=== PATIENT | female | born 1985 | race American Indian/Alaskan Native ===

== ENCOUNTER 2017-10-02 07:14 | Emergency (ER) | payer SELFPAY ==
[2017-10-02 08:09] VITALS: BP 142/91
[2017-10-02] MEDS ORDERED: MOTRIN PO ONE (10:24)
--- NOTE | 2017-10-02 10:33 | Emergency Department Report ---
HPI - General Chief Complaint: Upper Respiratory Infection Time Seen by Provider: 10/02/17 10:20 - HPI HPI: 32-year-old -[place] female comes in for flu like symptoms. Patient reports that she has body aches fever or diarrhea nasal congestion that all started yesterday. Patient reports that she does have chest pain with cough. She reports that fever was 102 yesterday she took Tylenol Cold and sinus last night. She has a past medical history of hypertension. She currently takes no medication has no known drug allergies. ED Past Medical Hx - Past Medical History Previous Medical History?: Yes Hx Hypertension: Yes - Surgical History Past Surgical History?: No - Social History Smoking Status: Current Every Day Smoker Substance Use Type: None - Medications Home Medications: Home Medications Medication Instructions Recorded Confirmed Last Taken Type Ibuprofen [Motrin 800 MG tab] 800 mg PO TID #30 tablet 10/02/17 Unknown Rx Oseltamivir [Tamiflu] 75 mg PO BID #10 cap 10/02/17 Unknown Rx ED Review of Systems ROS: Stated complaint: FLU LIKE SYMPTOMS Other details as noted in HPI Constitutional: fever, weakness Eyes: denies: eye pain, eye discharge, vision change ENT: congestion Respiratory: cough Cardiovascular: chest pain (with cough) Endocrine: no symptoms reported Gastrointestinal: denies: abdominal pain, nausea, diarrhea Genitourinary: denies: urgency, dysuria, discharge Musculoskeletal: denies: back pain, joint swelling, arthralgia Skin: denies: rash, lesions Neurological: denies: headache, weakness, paresthesias Psychiatric: denies: anxiety, depression Hematological/Lymphatic: denies: easy bleeding, easy bruising Physical Exam - Physical Exam Vital Signs: Vital Signs 10/02/17 08:07 Temperature 98.2 F Pulse Rate 69 Respiratory 16 Rate Blood Pressure 142/91 O2 Sat by Pulse 100 Oximetry Physical Exam: GENERAL APPEARANCE: Well developed, well nourished, in no acute distress. SKIN: Inspection of the skin reveals no rashes, ulcerations or petechiae. HEENT: The sclerae were anicteric and conjunctivae were pink and moist. Extraocular movements were intact and pupils were equal, round, and reactive to light with normal accommodation. External inspection of the ears and nose showed no scars, lesions, or masses. Lips, teeth, and gums showed normal mucosa. The oral mucosa, hard and soft palate, tongue and posterior pharynx were normal. NECK: Supple and symmetric. There was no thyroid enlargement, and no tenderness , or masses were felt. CHEST: Normal AP diameter and normal contour without any kyphoscoliosis. LUNGS: Auscultation of the lungs revealed normal breath sounds without any other adventitious sounds or rubs. CARDIOVASCULAR: There was a regular rate and rhythm without any murmurs, gallops , rubs. The carotid pulses were normal and 2+ bilaterally without bruits. Peripheral pulses were 2+ and symmetric. Chest tenderness left upper. ABDOMEN: Soft and nontender with normal bowel sounds. The liver span was approximately 5-6 cm in the right midclavicular line by percussion. The liver edge was nontender. The spleen was not palpable. There were no inguinal or umbilical hernias noted. No ascites was noted. LYMPH NODES: Left clavicular lymphadenopathy was appreciated. No lymphadenopathy in the neck, axillae or groin. MUSCULOSKELETAL: Gait was normal. There was no tenderness or effusions noted. Muscle strength and tone were normal. EXTREMITIES: No cyanosis, clubbing or edema. NEUROLOGIC: Alert and oriented x 3. Normal affect. Gait was normal. Normal deep tendon reflexes with no pathological reflexes. Sensation to touch was normal. ED Course Vital Signs 10/02/17 08:07 Temperature 98.2 F Pulse Rate 69 Respiratory 16 Rate Blood Pressure 142/91 O2 Sat by Pulse 100 Oximetry ED Medical Decision Making - Medical Decision Making Patient has been evaluated by this provider fast track. Patient is afebrile and non-tachycardia we will not do a flu since she does not meet the criteria, chest x-ray not needed patient is moving air not currently coughing does not have a fever. We'll give patient ibuprofen and see how she feels. Critical care attestation.: If time is entered above; I have spent that time in minutes in the direct care of this critically ill patient, excluding procedure time. ED Disposition Clinical Impression: Influenza Disposition: DC-01 TO HOME OR SELFCARE Is pt being admited?: No Does the pt Need Aspirin: No Condition: Stable Instructions: Influenza (ED) Additional Instructions: He is take medication as prescribed. Please be sure to drink plenty of fluids rest . If symptoms get worse or does not improve follow with her primary care provider Prescriptions: Ibuprofen [Motrin 800 MG tab] 800 mg PO TID #30 tablet Oseltamivir [Tamiflu] 75 mg PO BID #10 cap Referrals: PRIMARY CARE, [Primary Care Provider] - 3-5 Days [facility] [Outside] - 3-5 Days Forms: Work/School Release Form(ED)
== END 2017-10-02 11:57 | disposition home or self-care (01) ==
LOC: ED 07:14
DX: J11.1 Influenza due to unidentified influenza virus with other respiratory manifestations (principal); F17.200 Nicotine dependence, unspecified, uncomplicated; I10 Essential (primary) hypertension
CPT/HCPCS: 99282

== ENCOUNTER 2019-08-22 13:18 | Emergency (ER) | payer SELFPAY ==
[2019-08-22] MEDS ORDERED: IBUPROFEN 600 MG TAB PO ONE ×2 (15:37→15:39)
--- NOTE | 2019-08-22 15:37 | Event Note ---
ED Screening Note ED Screening Note: cough that began 2 days ago chest discomfort with frequent coughing generalized body aches has not taking any medications +rhinorrhea nausea no diarrhea no vomiting no congestion no SOB PMHx none no hx of asthma no allergies to meds LNMP: 07/28/19 non smoker This initial assessment/diagnostic orders/clinical plan/treatment(s) is/are subject to change based on patients health status, clinical progression and re- assessment by fellow clinical providers in the ED. Further treatment and workup at subsequent clinical providers discretion. Patient/guardian urged not to elope from the ED as their condition may be serious if not clinically assessed and managed. Initial orders include: ibuprofen, flu swab
--- NOTE | 2019-08-22 17:11 | Emergency Department Report ---
- General Chief Complaint: Dyspnea/Respdistress Stated Complaint: COUGH/CHEST PAIN Time Seen by Provider: 08/22/19 15:33 Source: patient Mode of arrival: Ambulatory Limitations: No Limitations - History of Present Illness Initial Comments: pt is a 34 yo female who presents to the ED with c/o a cough that began 2 days ago. she has associated chest discomfort with frequent coughing, generalized body aches, rhinorrhea, nausea. she has not taken any medications. she denies any diarrhea, vomiting, congestion, SOB.PMHx none. no hx of asthma no allergies to meds. LNMP: 07/28/19. non smoker. - Related Data Previous Rx's Medication Instructions Recorded Last Taken Type Ibuprofen [Motrin 800 MG tab] 800 mg PO TID #30 tablet 10/02/17 Unknown Rx Oseltamivir [Tamiflu] 75 mg PO BID #10 cap 10/02/17 Unknown Rx Oseltamivir [Tamiflu] 75 mg PO BID 5 Days #10 cap 08/22/19 Unknown Rx Allergies Allergy/AdvReac Type Severity Reaction Status Date / Time No Known Allergies Allergy Verified 10/02/17 08:10 ED Review of Systems ROS: Stated complaint: COUGH/CHEST PAIN Other details as noted in HPI Comment: All other systems reviewed and negative ED Past Medical Hx - Past Medical History Previous Medical History?: Yes Hx Hypertension: Yes - Surgical History Past Surgical History?: Yes - Social History Smoking Status: Never Smoker Substance Use Type: None - Medications Home Medications: Home Medications Medication Instructions Recorded Confirmed Last Taken Type Ibuprofen [Motrin 800 MG tab] 800 mg PO TID #30 tablet 10/02/17 Unknown Rx Oseltamivir [Tamiflu] 75 mg PO BID #10 cap 10/02/17 Unknown Rx Oseltamivir [Tamiflu] 75 mg PO BID 5 Days #10 cap 08/22/19 Unknown Rx ED Physical Exam - General Limitations: No Limitations General appearance: alert, in no apparent distress - Head Head exam: Present: atraumatic, normocephalic - Eye Eye exam: Present: normal appearance - ENT ENT exam: Present: normal orophraynx, mucous membranes moist, TM's normal bilaterally, normal external ear exam, other (clear mucus drainage ) - Respiratory Respiratory exam: Present: normal lung sounds bilaterally. Absent: respiratory distress, wheezes, rales, rhonchi, stridor, chest wall tenderness, accessory muscle use, decreased breath sounds, prolonged expiratory - Cardiovascular Cardiovascular Exam: Present: regular rate, normal rhythm, normal heart sounds. Absent: systolic murmur, diastolic murmur, rubs, gallop - Neurological Exam Neurological exam: Present: alert, oriented X3 - Psychiatric Psychiatric exam: Present: normal affect, normal mood - Skin Skin exam: Present: warm, dry, intact ED Course Vital Signs 08/22/19 08/22/19 15:33 17:10 Temperature 100.3 F H 99.5 F Pulse Rate 100 H 79 Respiratory 15 15 Rate Blood Pressure 135/92 Blood Pressure 119/81 [right arm] O2 Sat by Pulse 100 100 Oximetry ED Medical Decision Making - Medical Decision Making pt is a 34 yo female who presents to the ED with c/o a cough that began 2 days ago. she has associated chest discomfort with frequent coughing, generalized body aches, rhinorrhea, nausea. she has not taken any medications. she denies any diarrhea, vomiting, congestion, SOB.PMHx none. no hx of asthma no allergies to meds. LNMP: 07/28/19. non smoker. Initial vitals with mildly elevated temperature and heart rate. Patient given ibuprofen and vitals improved to normal. Rapid flu swab is positive for influenza A. Patient given prescription for Tamiflu as she is within the 48-hour range. advised pt to please take medication as prescribed. increase your fluid intake over the next several days, get plenty of rest. may take over the counter cough and cold medication. may alternate tylenol then ibuprofen every 4 hours as needed for fever or body aches. follow up with a primary care doctor in the next 2-3 days. return to the emergency room for any new or worsening symptoms. - Differential Diagnosis URI, influenza, PNA, bronchitis, viral syndrome Critical care attestation.: If time is entered above; I have spent that time in minutes in the direct care of this critically ill patient, excluding procedure time. ED Disposition Clinical Impression: Influenza A Disposition: DC-01 TO HOME OR SELFCARE Is pt being admited?: No Does the pt Need Aspirin: No Condition: Stable Instructions: Influenza (ED) Additional Instructions: please take medication as prescribed. increase your fluid intake over the next several days, get plenty of rest. may take over the counter cough and cold medication. may alternate tylenol then ibuprofen every 4 hours as needed for fever or body aches. follow up with a primary care doctor in the next 2-3 days. return to the emergency room for any new or worsening symptoms. Prescriptions: Oseltamivir [Tamiflu] 75 mg PO BID 5 Days #10 cap Referrals: ALISON HODGES MD [Staff Physician] - [facility] - [facility]3 Days Time of Disposition: 17:14 Print Language: [place]
[2019-08-22 17:12] VITALS: BP 119/81
== END 2019-08-22 17:12 | disposition home or self-care (01) ==
LOC: ED 13:18
DX: J10.1 Influenza due to other identified influenza virus with other respiratory manifestations (principal); I10 Essential (primary) hypertension; Z79.1 Long term (current) use of non-steroidal anti-inflammatories (NSAID); Z79.899 Other long term (current) drug therapy
CPT/HCPCS: 87400

== ENCOUNTER 2020-03-15 11:17 | Emergency (ER) | payer SELFPAY ==
[2020-03-15] MEDS ORDERED: predniSONE 20 MG TAB PO ONE (11:56)
[2020-03-15] MEDS ORDERED: KETOROLAC 60 MG/2 ML INJ IM ONE (11:56)
[2020-03-15 12:40] VITALS: BP 126/95
--- NOTE | 2020-03-15 12:40 | Emergency Department Report ---
ED Back Pain/Injury HPI - General Chief Complaint: Back Pain/Injury Stated Complaint: BACK PAIN Time Seen by Provider: 03/15/20 11:42 Source: patient Limitations: No Limitations - History of Present Illness Initial Comments: This is a 34-year-old female nontoxic, well nourished in appearance, no acute signs of distress presents to the ED with c/o of sudden lower back pain x1 day. Patient stated that she was at work and while heavy lifting started to have sharp pains that worsened today. Patient denies any radiation of pain. Patient denies any trauma. Denies any bladder or bowel instability. Patient denies any urinary symptoms. Denies any fever, chills, nausea, vomiting, headache, stiff neck, chest pain or shortness of breath. Patient denies any numbness or tingli ng. Denies any allergies. Denies significant past medical history. MD Complaint: back pain -: days(s) Similar Symptoms Previously: Yes Place: work Radiation: none Severity: mild Severity scale (0 -10): 8 Quality: aching Consistency: intermittent Improves With: immobilization, sitting upright Worsens With: movement, walking Context: while lifting, turning/twisting Associated Symptoms: denies other symptoms. denies: confusion, weakness, chest pain, numbness, difficulty walking, cough, difficulty urinating, diaphoresis, incontinence, fever/chills, constipation, headaches, abdominal pain, loss of appetite, malaise, nausea/vomiting, rash, seizure, shortness of breath, syncope - Related Data Previous Rx's Medication Instructions Recorded Last Taken Type Ibuprofen [Motrin 800 MG tab] 800 mg PO TID #30 tablet 10/02/17 Unknown Rx Oseltamivir [Tamiflu] 75 mg PO BID #10 cap 10/02/17 Unknown Rx Oseltamivir [Tamiflu] 75 mg PO BID 5 Days #10 cap 08/22/19 Unknown Rx Cyclobenzaprine [Flexeril] 10 mg PO QHS PRN #10 tablet 03/15/20 Unknown Rx Naproxen 500 mg PO Q12H PRN #12 tablet 03/15/20 Unknown Rx Allergies Allergy/AdvReac Type Severity Reaction Status Date / Time No Known Allergies Allergy Verified 10/02/17 08:10 ED Review of Systems ROS: Stated complaint: BACK PAIN Other details as noted in HPI Constitutional: denies: chills, fever Eyes: denies: eye pain, eye discharge, vision change ENT: denies: ear pain, throat pain Respiratory: denies: cough, shortness of breath, wheezing Cardiovascular: denies: chest pain, palpitations Endocrine: no symptoms reported Gastrointestinal: denies: abdominal pain, nausea, vomiting, diarrhea Genitourinary: denies: urgency, dysuria, discharge Musculoskeletal: back pain. denies: joint swelling, arthralgia Skin: denies: rash, lesions Neurological: denies: headache, weakness, paresthesias Psychiatric: denies: anxiety, depression Hematological/Lymphatic: denies: easy bleeding, easy bruising ED Past Medical Hx - Past Medical History Previous Medical History?: Yes Hx Hypertension: Yes - Surgical History Past Surgical History?: No - Social History Smoking Status: Current Every Day Smoker Substance Use Type: None - Medications Home Medications: Home Medications Medication Instructions Recorded Confirmed Last Taken Type Ibuprofen [Motrin 800 MG tab] 800 mg PO TID #30 tablet 10/02/17 Unknown Rx Oseltamivir [Tamiflu] 75 mg PO BID #10 cap 10/02/17 Unknown Rx Oseltamivir [Tamiflu] 75 mg PO BID 5 Days #10 cap 08/22/19 Unknown Rx Cyclobenzaprine [Flexeril] 10 mg PO QHS PRN #10 tablet 03/15/20 Unknown Rx Naproxen 500 mg PO Q12H PRN #12 tablet 03/15/20 Unknown Rx ED Physical Exam - General Limitations: No Limitations General appearance: alert, in no apparent distress - Head Head exam: Present: atraumatic, normocephalic - Eye Eye exam: Present: normal appearance - Neck Neck exam: Present: normal inspection, full ROM. Absent: tenderness, meningismus, lymphadenopathy - Respiratory Respiratory exam: Present: normal lung sounds bilaterally. Absent: respiratory distress, wheezes, rales, rhonchi, stridor, chest wall tenderness, accessory muscle use, decreased breath sounds, prolonged expiratory - Cardiovascular Cardiovascular Exam: Present: regular rate, normal rhythm, normal heart sounds. Absent: bradycardia, tachycardia, irregular rhythm, systolic murmur, diastolic murmur, rubs, gallop - GI/Abdominal GI/Abdominal exam: Present: soft, normal bowel sounds. Absent: distended, tenderness, guarding, rebound, rigid, diminished bowel sounds - Extremities Exam Extremities exam: Present: normal inspection, full ROM - Back Exam Back exam: Present: normal inspection, full ROM, paraspinal tenderness (lumbar paraspinal). Absent: tenderness, CVA tenderness (R), CVA tenderness (L), muscle spasm, vertebral tenderness, rash noted - Expanded Back Exam Expanded Back exam: Absent: saddle anesthesia Back exam: Negative Straight Leg Raising: Left, Right - Neurological Exam Neurological exam: Present: alert, oriented X3, normal gait - Psychiatric Psychiatric exam: Present: normal affect, normal mood - Skin Skin exam: Present: warm, dry, intact, normal color. Absent: rash ED Course Vital Signs 03/15/20 11:23 Temperature 98.2 F Pulse Rate 105 H Respiratory 18 Rate Blood Pressure 126/95 O2 Sat by Pulse 96 Oximetry Vital Signs 03/15/20 11:23 Temperature 98.2 F Pulse Rate 105 H Respiratory 18 Rate Blood Pressure 126/95 O2 Sat by Pulse 96 Oximetry - Reevaluation(s) Reevaluation #1: 03/15/20 12:40 Patient is speaking in full sentences with no signs of distress noted. ED Medical Decision Making - Medical Decision Making This is a 34-year-old female that presents with low back strain. Patient is stable was examined by me. There is no spinal tenderness. There is no cauda eq uina syndrome during examination. No bladder or bowel instability. Patient received Toradol 60 mg IM and prednisone in the ED which stated that his symptoms has resolved and subsided. Patient is discharged with muscle relaxant and Motrin. Patient was instructed not to operate any machinery while taking muscle relaxant as they cause her drowsiness. Patient was referred to Follow-up with a primary care doctor in 3-5 days or if symptoms worsen and continue return to emergency room as soon as possible. At time of discharge, the patient does not seem toxic or ill in appearance. No acute signs of distress noted. Patient agrees to discharge treatment plan of care. No further questions noted by the patient. This chart is dictated with using [employer] Critical care attestation.: If time is entered above; I have spent that time in minutes in the direct care of this critically ill patient, excluding procedure time. ED Disposition Clinical Impression: Low back strain Qualifiers: Encounter type: initial encounter Qualified Code(s): S39.012A - Strain of m uscle, fascia and tendon of lower back, initial encounter Disposition: TO HOME OR SELFCARE Is pt being admited?: No Does the pt Need Aspirin: No Condition: Stable Instructions: Low Back Strain (ED), Cyclobenzaprine (By mouth) Additional Instructions: Follow-up with your primary care doctor in 3-5 days or if symptoms worsen such as bladder or bowel stability, chest pain, short of breath, numbness or tingling sensation in extremities, headache, dizziness, visual changes, nausea vomiting, or abdominal pain, return back to emergency room as was possible. Take Naproxen and Flexeril as prescribed. Do not operate heavy machinery while taking Flexeril due to sedation Prescriptions: Cyclobenzaprine [Flexeril] 10 mg PO QHS PRN #10 tablet PRN Reason: Muscle Spasm Naproxen 500 mg PO Q12H PRN #12 tablet PRN Reason: Pain , Severe (7-10) Referrals: PRIMARY MD WILLI [Primary Care Provider] - 3-5 Days ALISON HODGES MD [Staff Physician] - 3-5 Days [facility] [Provider Group] - 3-5 Days Forms: Work/School Release Form(ED)
== END 2020-03-15 13:38 | disposition home or self-care (01) ==
LOC: ED 11:17
DX: S39.012A Strain of muscle, fascia and tendon of lower back, initial encounter (principal); I10 Essential (primary) hypertension; F17.200 Nicotine dependence, unspecified, uncomplicated; Z79.1 Long term (current) use of non-steroidal anti-inflammatories (NSAID); Z79.899 Other long term (current) drug therapy; X50.0XXA Overexertion from strenuous movement or load, initial encounter; Y93.89 Activity, other specified; Y92.89 Other specified places as the place of occurrence of the external cause; Y99.8 Other external cause status
CPT/HCPCS: 96372; 99282; J1885; J7512

== ENCOUNTER 2020-03-18 11:05 | Emergency (ER) | payer SELFPAY ==
--- NOTE | 2020-03-18 13:14 | Emergency Department Report ---
Blank Doc - Documentation Documentation: 34-year-old female that presents with lower back pains s/p fall today. Patient stated that she was sneezing and loss balance and fell to the lumbar spine area. Denies any other injuries or complaints. This initial assessment/diagnostic orders/clinical plan/treatment(s) is/are subject to change based on patient's health status, clinical progression and re- assessment by fellow clinical providers in the ED. Further treatment and workup at subsequent clinical providers discretion. Patient/guardians urged not to elope from the ED as their condition may be serious if not clinically assessed and managed. Initial orders include: 1- Patient sent to [facility] for further evaluation and treatment 2- xrays
--- NOTE | 2020-03-18 15:28 | XRay Report ---
LUMBOSACRAL SPINE 3 VIEWS INDICATION: pain s/p fall. COMPARISON: None. IMPRESSION: Normal alignment. No significant discogenic DJD or facet arthropathy. No acute osseous or soft tissue abnormality. Signer Name: Sorin James Jr, MD Signed: 03/18/2020 3:24 PM Workstation Name: [id number]
[2020-03-18] MEDS ORDERED: IBUPROFEN 600 MG TAB PO ONE (16:57)
[2020-03-18] MEDS ORDERED: traMADol 50 MG TAB PO ONE (16:57)
--- NOTE | 2020-03-18 17:00 | Emergency Department Report ---
ED Back Pain/Injury HPI - General Chief Complaint: Fall Time Seen by Provider: 03/18/20 13:11 Source: patient Limitations: No Limitations - History of Present Illness Initial Comments: Patient is a 34-year-old female presents emergency room with complaints of lower back pain that began 3 days ago. She states that today she exacerbated it while at work. She states that she sneezed and felt her back lock up and went down to the ground. She states that she did not fall onto her back. She states that she does heavy lifting at work. She denies any numbness, weakness, bowel or bladder incontinence, fever, history of cancer, history of steroid use, history of IV drug use, any other pain. She denies any past medical history or allergies to medications. She is ambulating without difficulty. - Related Data Previous Rx's Medication Instructions Recorded Last Taken Type Ibuprofen [Motrin 800 MG tab] 800 mg PO TID #30 tablet 10/02/17 Unknown Rx Oseltamivir [Tamiflu] 75 mg PO BID #10 cap 10/02/17 Unknown Rx Oseltamivir [Tamiflu] 75 mg PO BID 5 Days #10 cap 08/22/19 Unknown Rx Cyclobenzaprine [Flexeril] 10 mg PO QHS PRN #10 tablet 03/15/20 Unknown Rx Naproxen 500 mg PO Q12H PRN #12 tablet 03/15/20 Unknown Rx Allergies Allergy/AdvReac Type Severity Reaction Status Date / Time No Known Allergies Allergy Verified 10/02/17 08:10 ED Review of Systems ROS: Stated complaint: Other details as noted in HPI Comment: All other systems reviewed and negative ED Past Medical Hx - Past Medical History Hx Hypertension: Yes - Social History Smoking Status: Current Some Day Smoker Substance Use Type: None - Medications Home Medications: Home Medications Medication Instructions Recorded Confirmed Last Taken Type Ibuprofen [Motrin 800 MG tab] 800 mg PO TID #30 tablet 10/02/17 Unknown Rx Oseltamivir [Tamiflu] 75 mg PO BID #10 cap 10/02/17 Unknown Rx Oseltamivir [Tamiflu] 75 mg PO BID 5 Days #10 cap 08/22/19 Unknown Rx Cyclobenzaprine [Flexeril] 10 mg PO QHS PRN #10 tablet 03/15/20 Unknown Rx Naproxen 500 mg PO Q12H PRN #12 tablet 03/15/20 Unknown Rx ED Physical Exam - General Limitations: No Limitations General appearance: alert, in no apparent distress - Head Head exam: Present: atraumatic, normocephalic - Eye Eye exam: Present: normal appearance - ENT ENT exam: Present: mucous membranes moist - Neck Neck exam: Present: normal inspection, full ROM. Absent: tenderness - Respiratory Respiratory exam: Present: normal lung sounds bilaterally. Absent: respiratory distress, wheezes, rales, rhonchi, stridor, chest wall tenderness, accessory muscle use, decreased breath sounds, prolonged expiratory - Cardiovascular Cardiovascular Exam: Present: regular rate, normal rhythm, normal heart sounds. Absent: systolic murmur, diastolic murmur, rubs, gallop - Back Exam Back exam: Present: normal inspection, full ROM, paraspinal tenderness (bilateral lumbar paraspinal muscular ttp, no midline C-spine, T-spine or L- spine ttp, no step offs, no deformities). Absent: vertebral tenderness - Neurological Exam Neurological exam: Present: alert, oriented X3, CN II-XII intact, normal gait. Absent: motor sensory deficit - Psychiatric Psychiatric exam: Present: normal affect, normal mood - Skin Skin exam: Present: warm, dry, intact ED Course Vital Signs 03/18/20 03/18/20 13:13 17:22 Temperature 98 F Pulse Rate 73 69 Respiratory 18 20 Rate Blood Pressure 114/74 106/69 O2 Sat by Pulse 100 100 Oximetry ED Medical Decision Making - Radiology Data Radiology results: report reviewed LUMBOSACRAL SPINE 3 VIEWS INDICATION: pain s/p fall. COMPARISON: None. IMPRESSION: Normal alignment. No significant discogenic DJD or facet arthropathy. No acute osseous or soft tissue abnormality. Signer Name: Sorin Tamayo Jr, MD Signed: 03/18/2020 3:24 PM Workstation Name: [id number] Transcribed By: TTR Dictated By: SORIN TAMAYO JR, MD Electronically Authenticated By: SORIN TAMAYO JR, MD Signed Date/Time: 03/18/20 152 DD/ 22 TD/TT: - Medical Decision Making Patient is a 34-year-old female presents emergency room with complaints of lower back pain that began 3 days ago. She states that today she exacerbated it while at work. She states that she sneezed and felt her back lock up and went down to the ground. She states that she did not fall onto her back. She states that she does heavy lifting at work. She denies any numbness, weakness, bowel or bladder incontinence, fever, history of cancer, history of steroid use, history of IV drug use, any other pain. She denies any past medical history or allergies to medications. She is ambulating without difficulty. Vitals are normal. On exam:bilateral lumbar paraspinal muscular ttp, no midline C-spine, T-spine or L-spine ttp, no step offs, no deformities, no neurological deficits. X-ray ordered prior to my examination. X-ray lumbar spine: IMPRESSION: Normal alignment. No significant discogenic DJD or facet arthropathy. No acute osseous or soft tissue abnormality. Examination most likely consistent with muscle strain. Discussed all findings with patient and answered questions. Patient given tramadol and ibuprofen while in the emergency department as she did not drive and symptoms improved. Patient was already evaluated in the emergency department 3 days ago and given prescription for Flexeril and naproxen, advised patient that she could continue to take these medications at home as prescribed during her previous visit. advised pt Please take the medication you were prescribed during your last emergency room visit. Alternate 15 minutes of ice, 15 minutes heating pad, rest, Epson salt bath. Follow-up with a primary care doctor. Follow-up with orthopedic doctor. If you do not have either 1 of these doctors several have been listed below. Return to [facility] room immediately for any new or worsening symptoms. - Differential Diagnosis strain, sprain, fx, dislocation, bulging/herniated disc, DDD, DJD Critical care attestation.: If time is entered above; I have spent that time in minutes in the direct care of this critically ill patient, excluding procedure time. ED Disposition Clinical Impression: Low back strain Qualifiers: Encounter type: initial encounter Qualified Code(s): S39.012A - Strain of mus patricia, fascia and tendon of lower back, initial encounter Disposition: TO HOME OR SELFCARE Is pt being admited?: No Does the pt Need Aspirin: No Condition: Stable Instructions: Muscle Strain (ED) Additional Instructions: Please take the medication you were prescribed during your last emergency room visit. Alternate 15 minutes of ice, 15 minutes heating pad, rest, Epson salt bath. Follow-up with a primary care doctor. Follow-up with orthopedic doctor. If you do not have either 1 of these doctors several have been listed below. Return to emergency room immediately for any new or worsening symptoms. Referrals: ALISON HDOGES MD [Staff Physician] - 3-5 Days [facility] [Provider Group] - 3-[address] [facility] [place] [Outside] - 3-5 Days WINSTON MALAGON MD [Staff Physician] - 3-5 Days [facility] [Provider Group] - 3-5 Days Forms: Work/School Release Form(ED) Time of Disposition: 16:59 Print Language: MAURITANIAN
[2020-03-18 18:09] VITALS: BP 106/69
== END 2020-03-18 18:09 | disposition home or self-care (01) ==
LOC: ED 11:05
DX: S39.012A Strain of muscle, fascia and tendon of lower back, initial encounter (principal); I10 Essential (primary) hypertension; F17.200 Nicotine dependence, unspecified, uncomplicated; Z79.899 Other long term (current) drug therapy; X58.XXXA Exposure to other specified factors, initial encounter; Y93.89 Activity, other specified; Y92.89 Other specified places as the place of occurrence of the external cause; Y99.8 Other external cause status
CPT/HCPCS: 72100